=== PATIENT | male | born 1950 | race Caucasian/White ===

== ENCOUNTER 2017-02-26 06:36 | Day surgery (SDC) | payer MEDICARE, BC ==
--- NOTE | ~2017-02-26 | OP ---
Record Of Operation [facility] [address] [place]. [address] NAME: JUAN MIGUEL TAM : 48 STATUS : REG [facility]#: [id number] AGE: 66 ADM/REG DATE : 02/26/17 MR#: [id number] REPORT SERV DATE: 02/27/17 DICTATED BY: GERTRUDIS LOPEZ DATE: 02/27/17 REPORT STATUS : Draft TRANSCRIBED BY: MODL DATE: 02/27/17 DATE OF PROCEDURE: 02/26/2017 ADDENDUM This is an addendum for the procedure performed on February 26. This is for clarification purposes: The biopsies performed in the right lower lobe and right middle lobe with transbronchial lung biopsies performed under fluoroscopic guidance with 7 total biopsies between both lobes. 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 GENNA/CHRISTINA Gertrudis Lopez M.D. / [id number] CC: Ryan Vargas MD
--- NOTE | ~2017-02-26 | OP ---
Record Of Operation [facility] [address] [place]. [address] NAME: JUAN MIGUEL TAM : 48 STATUS : REG [facility]#: [id number] AGE: 66 ADM/REG DATE : 02/26/17 MR#: [id number] REPORT SERV DATE: 02/26/17 DICTATED BY: GERTRUDIS LOPEZ DATE: 02/26/17 REPORT STATUS : Draft TRANSCRIBED BY: MODL DATE: 02/26/17 DATE OF PROCEDURE: 02/26/2017 SURGEON: Gertrudis Lopez M.D. PROCEDURES PERFORMED: Fiberoptic bronchoscopy, bronchoscopy with bronchoalveolar lavage, and transbronchial lung biopsies of two lobes. DESCRIPTION OF PROCEDURE: After risks and benefits were explained, informed consent was obtained. The patient received general anesthesia under the care of Anesthesiology with placement of an LMA artificial airway. The bronchoscope was inserted via the LMA and advanced beyond the vocal cords without difficulty and the entire bronchial tree was inspected. The first order segmental bronchi were all easily visualized and there were no endobronchial lesions or significant airway abnormalities. Following airway inspection, we wedged the bronchoscope in the right middle lobe and right upper lobe anterior segment and performed bronchoalveolar lavages by instilling saline, which was aspirated into a Lukens trap. Following that, on the fluoroscopic guidance, we performed a series of biopsies in the right lower lobe and right middle lobe with good visualization of fluoroscopy and good sized biopsies. The patient tolerated the procedure well, and there were no immediate complications, though postoperative chest radiograph is pending. GENNA/CHRISTINA Gertrudis Lopez M.D. / [id number] CC: Ryan Vargas MD
[~2017-02-26 06:36] MED LIST: FLOMAX4 PO; MULTIVIT/MIN PO; OXYCON10 PO; PCET PO; ULTRAM50 PO; ZOFRAN4 PO
[2017-02-26 10:41] LABS: BD FL SOURCE (NOT ORD) BAL; BF TOTAL CELL CT (NOT ORD 125 /MM3; BODY FLUID RBC (NOT ORD) < 1000 /MM3
[2017-02-26 10:56] LABS: BD FL LYMPH (NOT ORD) 5 %; BF BASO (NOT OF) 0 %; BF LARGE MONONUCLEAR 79 %; BODY FLUID EOS (NOT ORD) 4 %; BODY FLUID SEG (NOT ORD) 12 %
== END 2017-02-26 23:59 | disposition home or self-care (01) ==
LOC: DMU 06:36
PROVIDERS: Internal Medicine Pulmonary Disease
PROC: 0B9F8ZX Drainage of Right Lower Lung Lobe, Via Natural or Artificial Opening Endoscopic, Diagnostic (ICD-10-PCS; 2017-02-26)
PROC: 0B9D8ZX Drainage of Right Middle Lung Lobe, Via Natural or Artificial Opening Endoscopic, Diagnostic (ICD-10-PCS; 2017-02-26)
PROC: 0B9D8ZX Drainage of Right Middle Lung Lobe, Via Natural or Artificial Opening Endoscopic, Diagnostic (ICD-10-PCS; principal; 2017-02-26 08:00)
PROC: 0B9C8ZX Drainage of Right Upper Lung Lobe, Via Natural or Artificial Opening Endoscopic, Diagnostic (ICD-10-PCS; 2017-02-26 08:00)
DX: J84.17 Other interstitial pulmonary diseases with fibrosis in diseases classified elsewhere (principal); G58.8 Other specified mononeuropathies; Z90.49 Acquired absence of other specified parts of digestive tract; Z80.0 Family history of malignant neoplasm of digestive organs; Z83.3 Family history of diabetes mellitus; Z82.49 Family history of ischemic heart disease and other diseases of the circulatory system; Z98.890 Other specified postprocedural states
CPT/HCPCS: 71010; 87015; 87070; 87102; 87116; 87205; 88112; 88305; 89051; 93005